=== PATIENT | male | born 2000 | race Caucasian/White ===

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

== ENCOUNTER 2021-04-28 20:49 | Emergency (ER) | payer OTHER, MEDICAID, SELFPAY ==
[2021-04-28 21:35] VITALS: BP 126/71; PULSE 92; RESP 18; TEMP 37.5; O2SAT 98; BMI 17.7
[2021-04-28 23:18] VITALS: PULSE 81; O2SAT 96
[2021-04-28 23:30] VITALS: PULSE 76; O2SAT 95
[2021-04-28 23:37] VITALS: BP 119/66; PULSE 69; O2SAT 95
--- NOTE | 2021-04-28 23:40 | ED_ITS ---
HPI - Male Genitourinary General Chief complaint: Urogenital-Male Stated complaint: Swelling below region Time Seen by Provider: 04/28/21 23:19 Source: patient Mode of arrival: Ambulatory Limitations: no limitations History of Present Illness HPI Narrative: This is a 20-year-old male who comes emergency department for concern for swelling of the right groin in the pubic area and along the edge of the penis. Patient states symptoms started about 5 hours prior to arrival. He denies any significant pain but there is some mild discomfort. He states he did have an ingrown hair that he removed with a sterilized needle. He does not had any drainage. Patient noticed some swelling and a hard sensation or feel. He has not had any warmth or erythema. No fevers. He does not have any dysuria, urgency, frequency or discharge. No testicular pain. Patient has not had similar symptoms in the past. He does note that he used a restrictive device around the penis as well as testicles that was wrapped around. He did not appreciate any significant color changes when this occurred but states he was not paying close attention. He is otherwise healthy. He states he had a torsion in the past but did not require surgical repair. He takes medication for mental health but no other regular medications. No known drug allergies. He does not smoke. Denies illicit substances. Patient follows with Dr. Carr as his PCP. Related Data Previous Rx's Medication Instructions Recorded ondansetron 4 mg disintegrating 4 mg SUBLINGUAL Q6HP PRN #10 odt 07/31/17 tablet (Zofran ODT) Allergies Allergy/AdvReac Type Severity Reaction Status Date / Time No Known Drug Allergies Allergy Verified 04/28/21 21:35 Review of Systems Review of Systems ROS Unobtainable: All systems reviewed & are unremarkable except as noted in HPI and below Patient History Social History Smoking Status: Never smoker Smoking Status: Never smoker Substance Use Type: does not use Exam Narrative Exam Narrative: GENERAL: Alert and oriented x three, male in mild distress. HEENT: Head normocephalic, atraumatic, EOMI, pupils reactive, face symmetric, moist mucous membranes NECK: Supple, full range of motion CARDIOVASCULAR: Regular rate and rhythm without murmurs, rubs or gallops. RESPIRATORY: Breath sounds equal bilaterally, no wheezes rales or rhonchi. ABDOMEN: Soft, nontender. Normoactive bowel sounds all 4 quadrants. No guarding or rebound, rigidity, no mass : No CVA tenderness. Male: normal external examination state exception of slight swelling at the root of penis on the 7 o'clock position with some slight fullness extending over the top of the testicle. Somewhat linear in nature and approximately 2 cm in length with what feels like a small 70 solid nodule. There is no warmth, erythema or induration. The area is nontender to touch. There is no growths or skin changes. No penile discharge or lesions, testicles non-tender, cremasteric reflex intact, no inguinal hernias noted. I do not appreciate any lacerations cuts or injuries otherwise although patient had noted that he moved an ingrown hair with a needle. EXTREMITIES: Normal range of motion, no clubbing or edema. Neurovascularly intact NEUROLOGICAL: Cranial nerves II through XII grossly intact. Moving all extremities SKIN: Warm, dry, no petechiae, no rashes or lesions. Initial Vital Signs Initial Vital Signs: Vital Signs Temperature 99.5 F 04/28/21 21:35 Pulse Rate 92 H 04/28/21 21:35 Respiratory Rate 18 04/28/21 21:35 Blood Pressure 126/71 04/28/21 21:35 Pulse Oximetry 98 04/28/21 21:35 Course Vital Signs Vital signs: Vital Signs - 8 hr 04/28/21 21:35 04/28/21 23:18 04/28/21 23:30 Temperature 99.5 F Pulse Rate 92 H 81 76 Respiratory Rate 18 Blood Pressure 126/71 Pulse Oximetry 98 96 95 04/28/21 23:37 04/28/21 23:55 04/29/21 00:00 Temperature Pulse Rate 69 92 H Respiratory Rate Blood Pressure 119/66 123/75 Pulse Oximetry 95 97 MDM - Male Genitourinary Lab Data Labs: Urine Dip Bedside Urine Glucose Negative Bedside Urine Bilirubin - Negative Bedside Urine Ketone - Negative Urine Specific [place] 1.015 Bedside Urine Occult Blood - Negative Bedside Urine pH 7 Bedside Urine Protein - Negative Bedside Urine Urobilinogen - Negative Bedside Urine Nitrite - Negative Bedside Urine Leukocytes - Negative Esterase MDM Narrative Medical decision making narrative: This is a 20 old male who has swelling foot palpation feels like possibly a small nodule at the base or bruit of the penis on the right extending over the top of the testicle. There is no warmth erythema or signs of infection on exam. He did have some constriction to the area earlier although he states it was not directly over this area. Plan for warm compresses, watchful waiting, avoiding constriction of the area and repeat evaluation. Patient is a little reluctant to follow-up with his primary care so Urology referral was given as well. Patient was asked to return if he has rapidly worsening symptoms. Patient feels comfortable with this plan all questions answered. Discharge Plan Departure Patient Disposition: Home Clinical Impression: Groin swelling Activity Restrictions/Additional Instructions: If you do not improvement over the next several days follow-up with urology. You can call for an appointment tomorrow morning or if you prefer follow-up with your primary care physician. You can apply warm compresses to the affected area 3 times daily. I would avoid constriction of the area for the next week. If swelling resolves without any other changes you do not need any additional intervention. If you have a rapid increasing swelling, redness, warmth, pain, fevers, pain of the penis or testicle itself or other new or concerning symptoms please return to the emergency department. Prescriptions: No Action ondansetron [Zofran ODT] 4 MG tablet,disintegrating 4 mg Sublingual Q6HP PRNQty: 10 0RF Referrals: Bear Godwin MD [Physician] -
[2021-04-28 23:55] VITALS: PULSE 92; O2SAT 97
[2021-04-29] VITALS: BP 123/75
== END 2021-04-29 00:31 | disposition home or self-care (01) ==
PROVIDERS: Emergency Provider Emergency Medicine
DX: R22.2 Localized swelling, mass and lump, trunk (principal)
CPT/HCPCS: 81003; 99282